=== PATIENT | female | born 1990 | race Caucasian/White ===

== ENCOUNTER 2020-12-10 16:05 | Inpatient (IN) ==
[2020-12-10 17:05] LABS: Urine Appearance Clear; Urine Bilirubin Negative (Negative); Urine Blood 3+ (Negative); Urine Color Straw; Urine Glucose Negative (Negative); Urine Ketones Negative (Negative); Urine Nitrite Negative (Negative); Urine Protein Negative (Negative); Urine Specific Gravity 1.001 (1.010-1.030); Urine Urobilinogen Negative (Negative)
[2020-12-10 17:11] LABS: Urine Bacteria Absent (Absent); Urine Red Blood Cell 1+(3-5/hpf) (Absent); Urine Squamous Epithelial Cell Present (Absent); Urine White Blood Cell Absent (Absent)
[2020-12-10 17:17] LABS: ABS Basophils 0.1 10^3/ul (0-0.2); ABS Eosinophils 0.1 10^3/ul (0-0.6); ABS Lymphocytes 2.3 10^3/ul (1.0-4.8); ABS Monocytes 0.6 10^3/ul (0-0.8); ABS Neutrophils 7.2 10^3/ul (1.5-7.7); Eosinophil % 0.8 %; Hematocrit 41 % (35-47); Hemoglobin 14.5 g/dL (12.0-16.0); Lymphocyte % 22.2 %; Mean Corpuscular HGB Conc 35 g/dL (31-36); Mean Corpuscular Hemoglobin 33 pg (27-31); Mean Corpuscular Volume 95 fL (80-97); Platelet Count 290 10^3/uL (150-450); Red Blood Count 4.35 10^6 /uL (3.70-4.87); Red Cell Distribution Width 13 % (10-15); White Blood Count 10.2 10^3/uL (3.5-10.8)
[2020-12-10 17:22] LABS: ALT 11 U/L (7-52); AST 14 U/L (13-39); Albumin 4.4 g/dL (3.2-5.2); Albumin/Globulin Ratio 1.5 (1-3); Alkaline Phosphatase 45 U/L (34-104); Anion Gap 6 mmol/L (2-11); BUN/Creatinine Ratio 12.8 (8-20); Blood Urea Nitrogen 11 mg/dL (6-24); CO2 Carbon Dioxide 27 mmol/L (22-32); Calcium 9.5 mg/dL (8.6-10.3); Chloride 106 mmol/L (101-111); EGFR African American 93.1 (>60); Glucose 106 mg/dL (70-100); Potassium 3.5 mmol/L (3.5-5.0); Sodium 139 mmol/L (135-145); Total Protein 7.4 g/dL (6.4-8.9)
[2020-12-10 17:22] LABS: Urine Benzodiazepine Screen None Detected (None Detect); Urine Cannabinoids Screen None Detected (None Detect); Urine Opiates Screen None Detected (None Detect)
[2020-12-10 17:26] LABS: Alcohol, S < 10 mg/dL (<10); Salicylate < 2.50 mg/dL (<30)
[2020-12-10 17:28] LABS: Acetaminophen < 15 mcg/mL
[2020-12-10 17:36] LABS: TSH Ultra Thyroid Stim Horm 3.42 mcIU/mL (0.34-5.60)
[2020-12-10] MEDS ORDERED: Al Hydrox/Mg Hydrox/Simet LIQ 30 ML UDC PO PRN (22:30)
[2020-12-11] MEDS ORDERED: Ondansetron ODT 4 mg TAB 4 MG TAB SL PRN (10:42)
[2020-12-11] MEDS: Vitamin THERAPEUTIC TAB PO SCH (12:16)
[2020-12-11] MEDS: Ondansetron ODT 4 mg TAB 4 MG TAB SL PRN (12:16)
[2020-12-12 07:10] LABS: HDL Cholesterol 47.2 mg/dL
[2020-12-12] MEDS: Vitamin THERAPEUTIC TAB PO SCH (12:17)
[2020-12-12] MEDS: Psyllium PAK PO SCH ×2 (17:12→20:28)
[2020-12-13] MEDS: Vitamin THERAPEUTIC TAB PO SCH (07:20)
[2020-12-13] MEDS: Psyllium PAK PO SCH ×2 (08:35→20:32)
[2020-12-14] MEDS: Vitamin THERAPEUTIC TAB PO SCH (07:36)
[2020-12-14] MEDS: Psyllium PAK PO SCH ×3 (09:00→22:09)
[2020-12-14] MEDS ORDERED: diPHENhydraMINE 25 mg TAB PO PRN (18:39)
[2020-12-14] MEDS: Polyethylene Glycol 3350 17 GM PACKET PO SCH (21:37)
[2020-12-14] MEDS: Ondansetron ODT 4 mg TAB 4 MG TAB SL PRN (22:11)
[2020-12-15] MEDS: Ondansetron ODT 4 mg TAB 4 MG TAB SL PRN ×3 (03:06→19:58)
[2020-12-15] MEDS: Polyethylene Glycol 3350 17 GM PACKET PO SCH (08:07)
[2020-12-15] MEDS: Psyllium PAK PO SCH ×2 (08:07→19:54)
[2020-12-15] MEDS: Vitamin THERAPEUTIC TAB PO SCH (08:07)
[2020-12-16] MEDS: Ondansetron ODT 4 mg TAB 4 MG TAB SL PRN ×2 (08:37→22:15)
[2020-12-16] MEDS: Polyethylene Glycol 3350 17 GM PACKET PO SCH (09:14)
[2020-12-16] MEDS: Vitamin THERAPEUTIC TAB PO SCH (09:14)
[2020-12-16] MEDS: Psyllium PAK PO SCH ×2 (09:14→20:43)
[2020-12-17] MEDS: Ondansetron ODT 4 mg TAB 4 MG TAB SL PRN (06:56)
[2020-12-17 08:47] VITALS: BP 111/72
[2020-12-17] MEDS: Psyllium PAK PO SCH (09:37)
[2020-12-17] MEDS: Vitamin THERAPEUTIC TAB PO SCH (09:37)
[2020-12-17] MEDS: Polyethylene Glycol 3350 17 GM PACKET PO SCH (09:37)
== END 2020-12-17 11:56 | disposition home or self-care (01) | DRG 885 ==
LOC: ED 16:05 → BSU 22:14
PROVIDERS: ADMIT Psychiatry & Neurology Psychiatry; ATTEND Psychiatry & Neurology Psychiatry